=== PATIENT | female | born 1935 | race Caucasian/White ===

== ENCOUNTER 2017-02-16 20:19 | Emergency (ER) | payer MEDICARE, OTHER ==
[~2017-02-16] VITALS: Ht 154.9 cm; Wt 80.3 kg
[2017-02-16] MEDS ORDERED: ASPIR 8181 MG ORAL (20:31)
[2017-02-16] MEDS ORDERED: EDARBYCLOR 40-1 EACH ORAL (20:31)
[2017-02-16] MEDS ORDERED: LEVOTHYROXINE75 MCG ORAL (20:31)
[2017-02-16 20:53] VITALS: BP 168/55
[2017-02-16] MEDS ORDERED: TYLENOL325 MG ORAL (21:15)
[2017-02-16 21:21] VITALS: BP 143/59
[2017-02-16 21:25] VITALS: BP 143/59
--- NOTE | 2017-02-17 10:13 | Diagnostic Imaging Report ---
Indication: PAIN Technique: 3 views of the left ankle Comparison: none Findings: There is soft tissue swelling over the lateral malleolus. Lateral view demonstrates a fracture of the proximal fifth metatarsal. No acute ankle fractures. No dislocations. Joint spaces are preserved. Bones are osteoporotic. There is a small plantar and calcaneal spur. Impression: Positive for fifth metatarsal fracture. No evidence of acute ankle fracture Soft tissue swelling over the lateral malleolus Osteoporosis. This agrees with the preliminary interpretation provided by the emergency room physician
--- NOTE | 2017-02-17 10:23 | Diagnostic Imaging Report ---
Indication: PAIN Technique: 3 views left foot Comparison: none Findings: There are small calcaneal and plantar spurs. There is a transverse nondisplaced fracture of the base of the fifth metatarsal. There is hallux valgus, hallux rigidus, and bunion formation. There is mild metatarsus adductus deformity. Bones are osteoporotic. No other acute fractures. No dislocations. Impression: Positive for nondisplaced fifth metatarsal base fracture. Other findings as noted This agrees with the preliminary interpretation provided by the emergency room physician
--- NOTE | 2017-02-18 08:10 | Emergency Room Report ---
History of Present Illness General Chief Complaint: Multiple Trauma/Fall Source: Patient Present Illness HPI Patient present with complaints of left foot pain This occurred earlier in the afternoon when the patient tripped Patient reports a mechanical-type fall Reports that she has had problems with her left leg and essentially eval to resulting in a twisting fashion of her left ankle Denies any focal weakness denies any headache or visual changes Denies any syncope or loss of consciousness Pain is 3/10 worse with touch lateral aspect of left foot Allergies: Coded Allergies: No Known Allergies (Verified , 02/16/17) Patient History Past Medical History: see triage record Pertinent Family History: none Last Menstrual Period: n/a Reviewed Nursing Documentation: PMH: Agreed, PSxH: Agreed Nursing Documentation-PMH Past Medical History: No History, Except For Hx Hypertension: Yes Review of Systems All Other Systems: negative except mentioned in HPI Physical Exam Vital Signs Date Time Temp Pulse Resp B/P Pulse Ox O2 Delivery O2 Flow Rate FiO2 02/16/17 20:26 98.1 74 16 175/74 95 Room Air Sp02 EP Interpretation: reviewed, normal General Appearance: well appearing, no apparent distress Head: normocephalic, atraumatic Eyes: bilateral eye EOMI, bilateral eye PERRL ENT: hearing grossly normal, normal pharynx, TMs + canals normal, uvula midline Neck: full range of motion, supple, no meningismus, no bony tend Respiratory: lungs clear, normal breath sounds, no rhonchi, no respiratory distress, no retraction, no accessory muscle use Cardiovascular #1: normal peripheral pulses, regular rate, rhythm, no gallop, no JVD, no murmur Gastrointestinal: normal bowel sounds, non tender, soft, no mass, no organomegaly, non-distended, no guarding, no hernia, no pulsatile mass, no rebound Genitourinary: no CVA tenderness Musculoskeletal: other - Pain to the lateral part of the left foot no obvious erythema Neurologic: oriented x3, sensory intact Psychiatric: mood/affect normal Skin: normal color, no rash, warm/dry, palpation normal Lymphatic: normal inspection, no adenopathy Procedures Splinting Splinting : Consent: Verbal Location: Left foot Hand-Made Type: plaster Splint: poserior short Pre-Proc Neuro Vasc Exam: normal Post-Proc Neuro Vasc Exam: normal Patient Tolerated: Well Complications: None Medical Decision Making Diagnostic Impression: Primary Impression: foot fracture ER Course Patient had imaging of the left foot and ankle obtained there is evidence of a fifth metatarsal fracture Given the patient's age and presentation I did want to perform further cardiac workup However the patient does not want to pursue this further And essentially requesting evaluation of the foot only Given the fracture patient care and case is discussed with orthopedics and will have close outpatient followup Other X-Ray Diagnostic Results Other X-Ray Diagnostic Results #1: EP Interpretation: Yes Findings: no fractures, no dislocation, no soft tissue swelling Number of Views: 3 - left ankle Other X-Ray Diagnostic Results #2: EP Interpretation: Yes Findings: no dislocation, no soft tissue swelling, other - Base of fifth metatarsal fracture Number of Views: 3 - left foot Last Vital Signs Date Time Temp Pulse Resp B/P Pulse Ox O2 Delivery O2 Flow Rate FiO2 02/16/17 21:25 98.1 68 16 143/59 95 Room Air Status: improved Disposition: HOME, SELF-CARE Condition: Improved Scripts Acetaminophen (Tylenol) 325 Mg Tablet 650 MG ORAL Q6H Y for Prn Pain/Headache/Temp > 101, #20 TAB 0 Refills Prov: AMADO LAL D.O. 02/16/17 Referrals: NON PHYSICIAN (PCP) KOLE YAO Patient Instructions: Metatarsal Fracture Additional Instructions: Patient is provided with the discharge instructions notified to follow up with orthopedics tomorrow and primary doctor in the next 2-3 days otherwise return to the er with any worsening symptoms. Please note that this report is being documented using DRAGON technology. This can lead to erroneous entry secondary to incorrect interpretation by the dictating instrument. AMADO LAL D.O. Feb 18, 2017 08:10
== END 2017-02-16 21:35 | disposition home or self-care (01) ==
LOC: EMR 20:46
DX: S92.355A Nondisplaced fracture of fifth metatarsal bone, left foot, initial encounter for closed fracture (principal); W01.0XXA Fall on same level from slipping, tripping and stumbling without subsequent striking against object, initial encounter; Y92.009 Unspecified place in unspecified non-institutional (private) residence as the place of occurrence of the external cause; I10 Essential (primary) hypertension; M77.32 Calcaneal spur, left foot
CPT/HCPCS: 99284

== ENCOUNTER 2017-03-01 10:09 | Emergency (ER) | payer MEDICARE, OTHER ==
[~2017-03-01] VITALS: Ht 154.9 cm; Wt 77.1 kg
[~2017-03-01 10:09] MED LIST: ASPIR 8181 MG ORAL; EDARBYCLOR 40-1 EACH ORAL; LEVOTHYROXINE75 MCG ORAL; TYLENOL325 MG ORAL
[2017-03-01 10:16] VITALS: BP 148/79
--- NOTE | 2017-03-01 10:59 | Emergency Room Report ---
History of Present Illness General Chief Complaint: Pain Source: Patient Present Illness HPI 81-year-old female presents ED for evaluation. Patient is here complaining of left leg pain. States that she was seen here about 2 weeks ago for left foot pain. Was noted to have a fracture in her foot. patient was treated then discharged. Patient states her last several days she is noted some pain in her left leg radiating up to her buttock. Pain is a 5/10, dull. Patient is concerned because she has a history of blood clots in her leg. Is currently not taking blood thinners at this time. No other aggravating relieving factors. Denies any other associated symptoms Allergies: Coded Allergies: No Known Allergies (Verified , 02/16/17) Patient History Past Medical History: HTN Past Surgical History: none Pertinent Family History: none Social History: Denies: alcohol use, drug use, smoking Now: No Immunizations: UTD Reviewed Nursing Documentation: PMH: Agreed, PSxH: Agreed Nursing Documentation-PMH Hx Hypertension: Yes Review of Systems All Other Systems: negative except mentioned in HPI Physical Exam Vital Signs Date Time Temp Pulse Resp B/P Pulse Ox O2 Delivery O2 Flow Rate FiO2 03/01/17 10:16 97.9 66 15 148/79 96 Room Air Sp02 EP Interpretation: reviewed, normal General Appearance: no apparent distress, alert, GCS 15, non-toxic Head: normocephalic, atraumatic Eyes: bilateral eye PERRL, bilateral eye normal inspection ENT: hearing grossly normal, normal pharynx, no angioedema, normal voice Neck: full range of motion, supple/symm/no masses Respiratory: chest non-tender, lungs clear, normal breath sounds, speaking full sentences Cardiovascular #1: regular rate, rhythm, no edema Cardiovascular #2: 2+ carotid (R), 2+ carotid (L), 2+ radial (R), 2+ radial (L) , 2+ dorsalis pedis (R), 2+ dorsalis pedis (L) Gastrointestinal: normal bowel sounds, non tender, soft, non-distended, no guarding, no rebound Rectal: deferred Genitourinary: normal inspection, no CVA tenderness Musculoskeletal: back normal, gait/station normal, normal range of motion, tender - L foot Neurologic: alert, oriented x3, responsive, motor strength/tone normal, sensory intact, speech normal Psychiatric: judgement/insight normal, memory normal, mood/affect normal, no suicidal/homicidal ideation Reflexes: 3+ bicep (R), 3+ bicep (L), 3+ tricep (R), 3+ tricep (L), 3+ knee (R) , 3+ knee (L) Skin: normal color, no rash, warm/dry, well hydrated Lymphatic: no adenopathy Medical Decision Making Diagnostic Impression: Primary Impression: Leg pain Qualified Codes: M79.605 - Pain in left leg ER Course Hospital Course 81-year-old F presents to ED complaining of L leg pain. recently treated for L foot fx. h/o DVT Differential diagnoses include: Fracture, dislocation, sprain, contusion Clinical course Patient placed on stretcher. After initial history and physical, I ordered doppler US no evidence of DVT. likely referred pain because patient is using airboot to walk. reassuracne given Diagnosis - leg pain Stable and discharged to home. apply ice, keep elevated. weight bear as tolerated. Followup with PMD. Return to ED if symptoms recur or worsen CT/MRI/US Diagnostic Results CT/MRI/US Diagnostic Results : Imaging Test Ordered: Doppler US Impression no evidence of DVT Last Vital Signs Date Time Temp Pulse Resp B/P Pulse Ox O2 Delivery O2 Flow Rate FiO2 03/01/17 10:16 97.9 66 15 148/79 96 Room Air Status: improved Disposition: HOME, SELF-CARE Condition: Stable Referrals: NON PHYSICIAN (PCP) DIMITRIS JOSEPH M.D. Mar 01, 2017 10:59
[2017-03-01 11:48] VITALS: BP 148/79
== END 2017-03-01 11:48 | disposition home or self-care (01) ==
LOC: EMR 10:41
DX: M79.605 Pain in left leg (principal); I10 Essential (primary) hypertension; Z86.718 Personal history of other venous thrombosis and embolism
CPT/HCPCS: 93970; 99284

== ENCOUNTER 2017-03-16 08:00 | Outpatient (RCR) | payer MEDICARE, OTHER | END 2017-03-19 | disposition home or self-care (01) | LOC: PTY 08:00 | DX: S92.352A Displaced fracture of fifth metatarsal bone, left foot, initial encounter for closed fracture (principal) | CPT/HCPCS: 97110; 97140; 97161; G0283; G8978; G8979 ==

== ENCOUNTER 2017-03-25 08:15 | Outpatient (RCR) | payer MEDICARE, OTHER | END 2017-04-19 | disposition home or self-care (01) | LOC: PTY 08:15 | DX: S92.352D Displaced fracture of fifth metatarsal bone, left foot, subsequent encounter for fracture with routine healing (principal); M50.30 Other cervical disc degeneration, unspecified cervical region; M25.562 Pain in left knee; X58.XXXD Exposure to other specified factors, subsequent encounter | CPT/HCPCS: 97110; 97140; G0283 ==

== ENCOUNTER 2017-05-06 09:30 | Outpatient (RCR) | payer MEDICARE, OTHER | END 2017-05-20 | disposition home or self-care (01) | LOC: PTY 09:30 | DX: S92.352A Displaced fracture of fifth metatarsal bone, left foot, initial encounter for closed fracture (principal) | CPT/HCPCS: 97110; 97140; G0283; G8978; G8979; G8980 ==